=== PATIENT | female | born 1990 | race Caucasian/White ===

== ENCOUNTER 2016-12-03 12:29 | Emergency (ER) | payer OTHER ==
[~2016-12-03] VITALS: Ht 177.8 cm; Wt 93.0 kg
[~2016-12-03 12:29] MED LIST: CIPRO 500MG TA500 MG PO; FLAG500 PO; TYLENOL #31 TAB PO
[2016-12-03 12:49] VITALS: BP 135/86
--- NOTE | 2016-12-03 15:07 | RADIOLOGY REPORT ---
EXAMINATION: XR CHEST CLINICAL INFORMATION: Cough and fever COMPARISON: No prior chest x-ray TECHNIQUE: 2 views of the chest were obtained. FINDINGS: Heart size and pulmonary vascularity is within normal limits. There is some streaky opacity in the region of the lingula which may represent mucous plugging and subsegmental atelectasis. No dense consolidation is appreciated. No other focal findings are seen in the lungs. There is no pleural effusion or pneumothorax. The visualized bony structures are unremarkable. IMPRESSION: Streaky opacity in the region of the lingula may represent some mucous plugging and subsegmental atelectasis. No other findings.
[2016-12-03] MEDS ORDERED: DOXYCYCLINE MO100 M2 PO (15:10)
[2016-12-03] MEDS ORDERED: GUAIFENESIN-COD10 ML PO (15:10)
--- NOTE | 2016-12-03 15:11 | ED INFLUENZA/URI COMPLAINT ---
History of Present Illness General Chief Complaint: Upper Respiratory Sx/Fever Stated Complaint: URI X 1WK Source: patient Exam Limitations: no limitations Vital Signs & Intake/Output Vital Signs & Intake/Output Vital Signs Date Time Temp Pulse Resp B/P Pulse O2 O2 Flow FiO2 Ox Delivery Rate 12/03 1431 Room Air Room Air 12/03 1249 97.9 102 18 135/86 97 Room Air Allergies Coded Allergies: ciprofloxacin (From CIPRO) (Intermediate, RASH AND HIVES 12/03/16) MDX - Cephalexin (From KEFLEX) (RASH/HIVES 05/24/12) Reconcile Medications Ciprofloxacin (Cipro) 500 MG TABLET 1 TAB PO BID DIVERTICULITIS Doxycycline Monohydrate 100 MG CAPSULE 1 CAP PO BID sinusitis Metronidazole (Flagyl) 500 MG TAB 500 MG PO Q6 DIVERTICULITIS Robitussin AC (Guaifenesin-Codeine Syrup) 200 MG-20 MG/10 ML LIQUID 10 ML PO Q4-6 PRN COUGH Tylenol With Codeine (Tylenol With Codeine #3 Tablet) 300 MG-30 MG TABLET 1-2 TAB PO Q6 DIVERTICULITIS TWENTY TABS.. [id number] Triage Note: PT TO ER C/C WORSENING SOB, PRODUCTIVE COUGH AND SINUS CONGESTIONS. WAS DIAGNOSED WITH BRONCHITIS AND GIVEN PREDNISONE, Z-PACK AND ALBUTEROL INH 4 DAYS AGO. AFEBRILE. Triage Nurses Notes Reviewed? yes : No Patient currently breastfeeds: No HPI: 25-year-old female with cough and congestion and wheezing diagnosed with bronchitis last week by her primary care doctor and placed on prednisone and Zithromax, she has 1 day left of Zithromax and she is not feeling any better. She is having nasal congestion and green nasal discharge and pressure. She is a smoker. She denies any fever or flulike illness. No modifying factors symptoms are moderate (SEGUNDO OLGUIN) Past History Travel History Traveled to [place] past 21 day No Medical History Any Pertinent Medical History? 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 No (SEGUNDO OLGUIN) Review of Systems Review of Systems Constitutional: Reports: see HPI. EENTM: Reports: see HPI. Respiratory: Reports: see HPI. Cardiovascular: Reports: no symptoms. GI: Reports: no symptoms. Genitourinary: Reports: no symptoms. Musculoskeletal: Reports: no symptoms. Skin: Reports: no symptoms. Neurological/Psychological: Reports: no symptoms. Hematologic/Endocrine: Reports: no symptoms. Immunologic/Allergic: Reports: no symptoms. All Other Systems: Reviewed and Negative (SEGUNDO OLGUIN) Physical Exam Physical Exam Ears, Nose, Throat: normal ENT inspection Comments: Well-developed well-nourished person in no acute distress HEENT: Normal EENT exam, extraocular motion intact, no nystagmus. Pupils equally round and reactive to light. Nose is atraumatic. External auditory canal and Tympanic membranes clear. Pharynx normal. No swelling or edema. Neck: Supple, no lymphadenopathy, normal range of motion without pain or tenderness Back: Nontender, no CVA tenderness. Full range of motion Cardiovascular: Regular rate and rhythms no murmurs, normal JVP Respiratory: Chest nontender. No respiratory distress. Faint wheezing noted bilaterally and expiratory phase Abdomen: Soft, nontender nondistended, no appreciable organomegaly. Normal bowel sounds. No ascites Extremity: No edema, no calf tenderness to palpation, normal and equal pulses. Neuro: Alert oriented x3, motor sensory normal, cranial nerves II through XII grossly intact. Skin: No appreciable rash on exposed skin, skin is warm and dry. Psych: Mood and affect is normal, memory and judgment is normal. Core Measures Severe Sepsis Present: No Septic Shock Present: No (SEGUNDO OLGUIN) Progress Differential Diagnosis: influenza, meningitis, neutropenia, otitis, pneumonia, pharyngitis, sinusitis Plan of Care: Orders Procedure Date/time Status URINE 12/03 1425 Complete Laboratory Tests 12/03/16 1430: Urine Test NEGATIVE Diagnostic Imaging: Viewed by Me: Radiology Read. Discussed w/RAD: Radiology Read. CXR Impression: PATIENT: RALPH ESQUEDA PRESENT AGE: 25 PATIENT ACCOUNT NO: [id number] : 88 LOCATION: [facility] ORDERING PHYSICIAN: SEGUNDO ARIAS SERVICE DATE: 12/03/16-1416 EXAM TYPE: RAD - XRY-CHEST XRAY, PA AND LATERAL EXAMINATION: XR CHEST CLINICAL INFORMATION: Cough and fever COMPARISON: No prior chest x-ray TECHNIQUE: 2 views of the chest were obtained. FINDINGS: Heart size and pulmonary vascularity is within normal limits. There is some streaky opacity in the region of the lingula which may represent mucous plugging and subsegmental atelectasis. No dense consolidation is appreciated. No other focal findings are seen in the lungs. There is no pleural effusion or pneumothorax. The visualized bony structures are unremarkable. IMPRESSION: Streaky opacity in the region of the lingula may represent some mucous plugging and subsegmental atelectasis. No other findings. DICTATED BY: JAKUB NIÑO MD DATE/TIME DICTATED:12/03/161500 MANAGER POST:KATLYN DATE/ TIME TRANSCRIBED:12/03/161500 Initial ED EKG: none Comments: Still with mild bronchitis although I think predominantly her symptoms are from sinusitis. We will switch her antibiotic to doxycycline and recommend close follow up with primary care doctor if no better in the next few days (SEGUNDO OLGUIN) Departure Departure Disposition: HOME OR SELF CARE Condition: Stable Clinical Impression Primary Impression: Sinusitis Qualifiers: Sinusitis location: maxillary Chronicity: acute Recurrence: non- recurrent Qualified Code: J01.00 - Acute maxillary sinusitis, unspecified Referrals: ANAID GOMEZ (PCP/Family) Additional Instructions: Take antibiotics for your infection as directed. Use [id number] multisystem cold medication as needed. Motrin and Tylenol as needed for fever. Drink plenty of fluids. Return or follow-up with your doctor if not better in the next 3-5 days or if you're having continued worsening fevers, nausea, vomiting, shortness of breath, abdominal pain, difficulty swallowing or drinking or worsening flulike illness. Departure Forms: Customer Survey General Discharge Information Prescriptions: Current Visit Scripts Doxycycline Monohydrate 1 CAP PO BID #20 CAP Robitussin AC (Guaifenesin-Codeine Syrup) 10 ML PO Q4-6 PRN COUGH #240 ML (SEGUNDO OLGUIN) PA/COMMUNITY HEALTH PLANNING DIRECTOR Co-Sign Statement Statement: ED Attending supervision documentation- [] I saw and evaluated the patient. I have also reviewed all the pertinent lab results and diagnostic results. I agree with the findings and the plan of care as documented in the PA's/COMMUNITY HEALTH PLANNING DIRECTOR's documentation. x I have reviewed the ED Record and agree with the PA's/COMMUNITY HEALTH PLANNING DIRECTOR's documentation. [] Additions or exceptions (if any) to the PAs/COMMUNITY HEALTH PLANNING DIRECTOR's note and plan are summarized below: [] (BRADY FRANCO,ESTELLE)
== END 2016-12-03 15:32 ==
LOC: ERH 12:29
DX: J32.9 Chronic sinusitis, unspecified (principal)
CPT/HCPCS: 81025